=== PATIENT | female | born 1940 | race Caucasian/White ===

== ENCOUNTER 2016-05-22 19:52 | Observation (INO) | payer MEDICARE, BC, OTHER ==
[~2016-05-22] VITALS: Ht 149.9 cm; Wt 41.7 kg
[2016-05-22 21:11] LABS: HEMOGLOBIN 13.5 gm/dl (12.3-15.3); RED BLOOD COUNT 4.23 M/UL (4.00-5.10); WHITE BLOOD COUNT 6.3 K/UL (4.5-11.0)
[2016-05-22 21:36] LABS: BUN/CREATININE RATIO 25 (0-10)
[2016-05-23] MEDS ORDERED: LOSARTAN POTAS100 MG PO (05:49)
[2016-05-23] MEDS ORDERED: HYDROCHLOROTHIA25 MG PO (05:50)
[2016-05-23] MEDS ORDERED: K-DUR TAB 10 M10 MEQ PO (05:50)
[2016-05-23] MEDS ORDERED: SYNTHROID50 MCG PO (05:50)
[2016-05-23] MEDS ORDERED: SERTRALINE HCL50 MG PO (05:51)
[2016-05-23] MEDS ORDERED: NORVASC 5 MG TAB5 MG PO (05:51)
[2016-05-23 06:33] LABS: HEMOGLOBIN 12.7 gm/dl (12.3-15.3); RED BLOOD COUNT 4.03 M/UL (4.00-5.10); WHITE BLOOD COUNT 4.8 K/UL (4.5-11.0)
[2016-05-23 07:13] LABS: BUN/CREATININE RATIO 28 (0-10)
[2016-05-23] MEDS ORDERED: NORVASC10 MG PO (21:43)
[2016-05-23] MEDS ORDERED: POTASSIUM CHLO10 MEQ PO (21:44)
[2016-05-23] MEDS ORDERED: PROTONIX40 MG PO (21:44)
[2016-05-23] MEDS ORDERED: NORVASC5 MG PO (21:51)
== END 2016-05-23 22:20 | disposition home or self-care (01) ==
LOC: ER1 19:52 → MED SURG 4 22:51 → ER1 22:51 → MED SURG 4 22:51 → ZEROF 22:51 → MED SURG 4 05-23 04:50 → ZEROF 05-23 06:12 → MED SURG 4 05-23 06:12
PROVIDERS: Internal Medicine Gastroenterology; Specialist/Technologist Athletic Trainer; ADMIT Internal Medicine
PROC: 0DB48ZX Excision of Esophagogastric Junction, Via Natural or Artificial Opening Endoscopic, Diagnostic (ICD-10-PCS; principal; 2016-05-23 12:12)
DX: K22.2 Esophageal obstruction (principal); K44.9 Diaphragmatic hernia without obstruction or gangrene; K29.70 Gastritis, unspecified, without bleeding; I10 Essential (primary) hypertension; E03.9 Hypothyroidism, unspecified; K59.00 Constipation, unspecified; G47.00 Insomnia, unspecified; E87.6 Hypokalemia; R63.4 Abnormal weight loss; E87.1 Hypo-osmolality and hyponatremia; Z90.711 Acquired absence of uterus with remaining cervical stump; Z82.49 Family history of ischemic heart disease and other diseases of the circulatory system; Z79.899 Other long term (current) drug therapy
CPT/HCPCS: ECHO; 36415; 70490; 71250; 74230; 80053; 82533; 82550; 82553; 83735; 83880; 84439; 84443; 84484; 85025; 92611-GN; 93005; 93306; 96374; 96375; 99284; C9113; G0378; J2250; J2405; J7040; J7050; Q9962